=== PATIENT | male | born 1945 | race Caucasian/White ===

== ENCOUNTER → 2021-06-27 | Outpatient (CLI) | payer MEDICARE | LOC: HEART CORB 10:00 | DX: R07.9 Chest pain, unspecified (principal); R60.0 Localized edema; E11.9 Type 2 diabetes mellitus without complications; Z86.79 Personal history of other diseases of the circulatory system; I08.1 Rheumatic disorders of both mitral and tricuspid valves | CPT/HCPCS: 78452; A9502; J2785 ==